=== PATIENT | female | born 1940 | race Caucasian/White ===

== ENCOUNTER → 2016-12-08 | Outpatient (CLI) | payer MEDICARE, OTHER ==
[~2016-12-08] MED LIST: ALTACE10 MG PO; ASPIRIN 32325 MG/TAB PO; ASPIRIN E.C. 8181 MG PO; CALCIUM + D 5001 TAB PO; CALCIUM 600 + V1 TA1 PO; CARDI-OMEGA1000 MG PO; COMBIVENT INH14.7 GM IH; COZAAR100 MG PO; CRANBERRY CONC500 MG PO; CRANBERRY450 MG PO; FAMILY PHARMAC0.4 MG PO; FOLIC ACID0.4 MG PO; FORADIL AERO0.012 MG IH; FORADIL IH; GLUCOPHAGE500 MG/TAB PO; IRON325 M1 PO; METFORMIN500 MG PO; MEVACOR10 MG PO; NEXIUM 40MG40 MG PO; NEXIUM40 MG PO; PREDNISONE20 MG PO; PREMARIN .3MG0.3 MG PO; PREMARIN0.3 MG PO; RT SPIRIVA18 MCG IH; SINGULAIR 110 MG/TAB PO; SINGULAIR10 MG PO; SPIRIVA18 MCG IH; THEO-24400 MG PO; TYLENOL 500MG500 MG PO; VENTOLIN0.09 MG IH; XOPENEX HF0.045 MG/A IH; ZITHROMAX 250M250 MG PO; ZITHROMAX Z PA250 MG PO; ZYRTEC 10MG10 MG PO; ZYRTEC10 M1 PO
== END ==
LOC: MC.RAD 13:00
DX: Z12.31 Encounter for screening mammogram for malignant neoplasm of breast (principal)

== ENCOUNTER → 2018-01-23 | Outpatient (CLI) | payer MEDICARE, OTHER | LOC: MC.RAD 13:32 | DX: Z12.31 Encounter for screening mammogram for malignant neoplasm of breast (principal); N64.89 Other specified disorders of breast ==

== ENCOUNTER → 2018-04-03 | Outpatient (CLI) | payer MEDICARE, OTHER | LOC: COL.RAD 12:58 | DX: K57.30 Diverticulosis of large intestine without perforation or abscess without bleeding (principal); N13.30 Unspecified hydronephrosis; N83.9 Noninflammatory disorder of ovary, fallopian tube and broad ligament, unspecified; Z85.51 Personal history of malignant neoplasm of bladder; Z96.643 Presence of artificial hip joint, bilateral; Z96.0 Presence of urogenital implants ==

== ENCOUNTER → 2018-04-20 | Outpatient (CLI) | payer MEDICARE, OTHER | LOC: COL.RAD 12:30 | DX: C67.9 Malignant neoplasm of bladder, unspecified (principal); Q62.11 Congenital occlusion of ureteropelvic junction | CPT/HCPCS: A9562 ==

== ENCOUNTER → 2019-01-29 | Outpatient (CLI) | payer MEDICARE, OTHER | LOC: MC.RAD 13:35 | DX: Z12.31 Encounter for screening mammogram for malignant neoplasm of breast (principal) ==

== ENCOUNTER → 2020-01-31 | Outpatient (CLI) | payer MEDICARE, OTHER | LOC: MC.RAD 12:55 | DX: Z12.31 Encounter for screening mammogram for malignant neoplasm of breast (principal) ==

== ENCOUNTER → 2020-11-27 | Outpatient (CLI) | payer MEDICARE, OTHER | LOC: COL.RAD 12:53 | DX: R35.0 Frequency of micturition (principal); Z85.51 Personal history of malignant neoplasm of bladder ==

== ENCOUNTER → 2021-02-23 | Outpatient (CLI) | payer MEDICARE, OTHER | LOC: MC.RAD 13:49 | DX: Z12.31 Encounter for screening mammogram for malignant neoplasm of breast (principal) ==